=== PATIENT | female | born 1985 ===

== ENCOUNTER 2017-05-29 16:53 | Emergency (ER) | payer SELFPAY ==
[2017-05-29 17:21] VITALS: RESP 18; TEMP 98.5
--- NOTE | 2017-05-29 18:27 | C.PDOC ---
History Of Present Illness 05/29/2017 Yanely Vela is a 31 y/o female who presents to the ED complaining of right ankle pain after a mechanical fall today prior to arrival. Patient reports she was walking down the stairs when she tripped and twisted her right ankle. Patient states she is having difficulty ambulating. She denies any head trauma or loss of consciousness. Patient denies weakness or numbness. Time Seen by Provider: 05/29/17 17:32 Chief Complaint (Nursing): Lower Extremity Problem/Injury History Per: Patient History/Exam Limitations: no limitations Onset/Duration Of Symptoms: Hrs (prior to arrival), Sudden Onset Current Symptoms Are (Timing): Still Present - Ankle/Foot Description Of Injury: Fell, Twisted (twisted ankle) Past Medical History Reviewed: Historical Data, Nursing Documentation, Vital Signs Vital Signs: Last Vital Signs Temp 98.5 F 05/29/17 17:20 Pulse 67 05/29/17 17:20 Resp 18 05/29/17 17:20 BP 111/73 05/29/17 17:20 Pulse Ox 98 05/29/17 18:39 - Medical History PMH: No Chronic Diseases Family History: States: No Known Family Hx - Social History Hx Alcohol Use: No Hx Substance Use: No - Immunization History Hx Tetanus Toxoid Vaccination: Yes Hx Influenza Vaccination: Yes Hx Pneumococcal Vaccination: Yes Review Of Systems Constitutional: Negative for: Fever Respiratory: Negative for: Cough, Shortness of Breath Gastrointestinal: Negative for: Nausea, Vomiting, Abdominal Pain Musculoskeletal: Positive for: Other (right ankle pain ) Neurological: Negative for: Headache, Dizziness Physical Exam - Physical Exam Appears: Well, Non-toxic, No Acute Distress Skin: Normal Color, Warm, Dry Head: Atraumatic, Normacephalic Eye(s): bilateral: Normal Inspection, PERRL, EOMI Extremity: Normal ROM, Tenderness (mild tenderness on lateral malleolus), Swelling (mild) Pulses: Left Dorsalis Pedis: Normal, Right Dorsalis Pedis: Normal Neurological/Psych: Oriented x3, Normal Speech, Normal Motor, Normal Sensation Gait: Steady ED Course And Treatment O2 Sat by Pulse Oximetry: 98 (room air) Pulse Ox Interpretation: Normal Medical Decision Making Medical Decision Makin05/29/2017 Plan: -- right ankle x-ray -- right foot x-ray -- Tylenol Re-evaluation: Both foot and ankle x-ray were reviewed by me. Results are negative for fracture. Air cast and crutches applied by supply tech. Discussed results and plan with patient. Patient understands results and is agreeable with plan. All questions answered. Disposition - Disposition Referrals: James Cabello III, MD [Staff Provider] - [facility] [Outside] Disposition: HOME/ ROUTINE Disposition Time: 18:37 Condition: GOOD Additional Instructions: Follow up with the medical doctor within 1-2 days. Return if worsened. Prescriptions: Ibuprofen [Motrin] 600 mg PO TID #21 tab Instructions: Ankle Sprain (ED) Forms: [employer] (Uzbek) Print Language: MALDIVIAN - Clinical Impression Clinical Impression: Ankle sprain - Scribe Statement The provider has reviewed the documentation as recorded by the Scribe 05/29/2017 Scribe Attestation: Christen Burden MD Scribe Attestation: All medical record entries made by the Scribe were at my direction and personally dictated by me. I have reviewed the chart and agree that the record accurately reflects my personal performance of the history, physical exam, medical decision making, and the department course for this patient. I have also personally directed, reviewed, and agree with the discharge instructions and disposition.
--- NOTE | 2017-05-29 18:36 | C.PDOC ---
Time Seen by Provider: 05/29/17 17:32 Chief Complaint (Nursing): Lower Extremity Problem/Injury Past Medical History Vital Signs: Last Vital Signs Temp 98.5 F 05/29/17 17:20 Pulse 67 05/29/17 17:20 Resp 18 05/29/17 17:20 BP 111/73 05/29/17 17:20 Pulse Ox 98 05/29/17 17:20 - Social History Hx Alcohol Use: No Hx Substance Use: No - Immunization History Hx Tetanus Toxoid Vaccination: Yes Hx Influenza Vaccination: Yes Hx Pneumococcal Vaccination: Yes ED Course And Treatment O2 Sat by Pulse Oximetry: 98 Disposition - Disposition
[2017-05-29 18:43] VITALS: BP 118/65; PULSE 75; O2SAT 99
--- NOTE | 2017-05-30 10:09 | RAD ---
PROCEDURE: Right Ankle Radiographs. HISTORY: post injury COMPARISON: None FINDINGS: BONES: Normal. No fracture. JOINTS: Normal. No osteoarthritis. Ankle mortise maintained. Talar dome intact SOFT TISSUES: Mild lateral soft tissue swelling, nonspecific. OTHER FINDINGS: None. IMPRESSION: No acute fracture. Mild lateral soft tissue swelling.
--- NOTE | 2017-05-30 10:11 | RAD ---
PROCEDURE: Right Foot Radiographs. HISTORY: post injury COMPARISON: None. FINDINGS: BONES: Normal. No fracture. JOINTS: Normal. SOFT TISSUES: Normal. OTHER FINDINGS: None. IMPRESSION: Normal right foot radiographs.
== END 2017-05-29 18:44 | disposition home or self-care (01) ==
LOC: C.ER 16:53
DX: S93.401A Sprain of unspecified ligament of right ankle, initial encounter (principal); W10.9XXA Fall (on) (from) unspecified stairs and steps, initial encounter